=== PATIENT | male | born 1985 | race Caucasian/White ===

== ENCOUNTER 2021-03-30 16:38 | Inpatient (IN) | payer SELFPAY ==
[~2021-03-30] VITALS: Ht 165.1 cm; Wt 67.3 kg
[~2021-03-30 16:38] MED LIST: CLIN150 PO; HYDACE5 PO; Prilosec Otc20 MG PO; SUCR1 PO
[2021-03-30 17:12] LABS: BASOPHILS ABSOLUTE AUTO 0.05 K/mm3 (0.00-0.23); BASOPHILS PERCENT AUTO 0 % (0-2); EOSINOPHILS ABSOLUTE AUTO 0.01 K/mm3 (0.00-0.68); EOSINOPHILS PERCENT AUTO 0 % (0-6); Hemoglobin 15.4 g/dL (13.5-17.5); IMMATURE GRAN ABSOLUTE AUTO 0.04 K/mm3 (0.00-0.10); IMMATURE GRAN PERCENT AUTO 0 % (0-1); LYMPHOCYTES ABSOLUTE AUTO 2.06 K/mm3 (0.84-5.20); LYMPHOCYTES PERCENT AUTO 17 % (21-46); MONOCYTES ABSOLUTE AUTO 1.57 K/mm3 (0.16-1.47); MONOCYTES PERCENT AUTO 13 % (4-13); Mean Corpuscular HGB 31.4 pg (26.0-34.0); Mean Corpuscular HGB Conc 35.8 g/dL (31.5-36.5); Mean Corpuscular Volume 88 fL (80-100); Mean Platelet Volume 10.5 fL (9.1-12.4); NEUTROPHILS ABSOLUTE AUTO 8.65 K/mm3 (1.96-9.15); NEUTROPHILS PERCENT AUTO 70 % (41-73); Platelet Count 305 K/mm3 (150-400); RDW Coefficient Variation 11.8 % (11.7-14.2); White Blood Cell Count 12.38 K/mm3 (4.00-11.30)
[2021-03-30 17:21] LABS: PCO2 Arterial 41.3 mmHg (35-45); PO2 Arterial 70.1 mmHg (80-100); pH Blood Arterial 7.39 (7.35-7.45)
[2021-03-30 17:24] LABS: Source, Urine Clean Catch
[2021-03-30 17:34] LABS: Alanine Aminotransfer (ALT/SGP 34 U/L (12-78); Albumin, Blood 4.4 g/dL (3.4-5.0); Alk Phos 79 U/L (50-136); Anion Gap 15 mmol/L (6-16); Aspartate Aminotrans (AST/SGOT 42 U/L (12-37); Bilirubin, Total 1.4 mg/dL (0.1-1.0); Blood Urea Nitrogen 14 mg/dL (8-24); Bun/Creatinine Ratio 12.1 (12.0-20.0); CO2, Blood 22 mmol/L (21-32); CPK Creatine Kinase 493 U/L (39-308); Calcium, Blood 9.4 mg/dL (8.5-10.1); Chloride, Blood 105 mmol/L (98-108); Creatine Kinase MB 4.1 ng/mL (0.0-3.6); Creatine Kinase MB Index 0.8 (0.0-4.0); Creatinine, Blood 1.16 mg/dL (0.60-1.20); Ethanol (Alcohol), Blood, Med <3 mg/dL; Free Thyroxine 1.14 ng/dL (0.70-1.60); Globulin, Blood 4.3 g/dL (2.2-4.0); Glomerular Filtration Rate >60 (60-); Glucose, Blood 139 mg/dL (70-99); Potassium, Blood 2.9 mmol/L (3.5-5.5); Sodium, Blood 142 mmol/L (136-145); Total Protein, Blood 8.7 g/dL (6.4-8.2)
[2021-03-30 18:13] LABS: Appearance, Urine Hazy (Clear); Bilirubin, Urine Neg (Neg); Blood, Urine 2+ (Neg); Color, Urine Yellow (P-Yellow); Glucose Qualitative, Urine 1+ (Neg); Ketones, Urine 1+ (Neg); Leukocyte Esterase, Urine 1+ (Neg); Nitrite, Urine Neg (Neg); Protein, Urine 3+ (Neg); Urobilinogen, Urine 1+ (Normal)
[2021-03-30 18:28] LABS: U Amphetamine Screen DETECTED; U Cannabinoids Screen DETECTED; U Methamphetamine Screen DETECTED
[2021-03-30 18:29] LABS: U Barbituate Screen Not Detected; U Benzodiazapine Screen Not Detected; U Buprenorphine Screen Not Detected; U Cocaine Screen Not Detected; U Methadone Screen Not Detected; U Opiates Screen Not Detected; U Oxycodone Screen Not Detected; U Phencyclidine Screen Not Detected; U Propoxyphene Screen Not Detected
[2021-03-30 18:33] LABS: Calcium Oxalate Crystals Few /hpf; Spermatozoa Mod /hpf
[2021-03-30 18:34] LABS: Amorphous Light (0-Heavy); Bacteria Few /hpf; Squamous Epithelial Cells Few /hpf (Few)
--- NOTE | 2021-03-30 20:30 | NUR ---
ADMIT ADMIT FROM ER VIA GURNEY. INTUBATED- AC 16, TV 450, PEEP 5, FIO2 35%. RR 16-18. SEDATED WITH PROPOFOL AT 60MCG/KG/MIN AND VERSED AT 3MG/HR. PT MOVES ALL EXTREMITIES AND WITHDRAWS TO NOXIOUS STIMULI, BUT IS NOT FOLLOWING COMMANDS. BILATERAL SOFT WRIST RESTRAINTS IN PLACE TO PREVENT SELF-EXTUBATION. MONITOR SHOWS NSR, RATE 90s. BP STABLE. OG CLAMPED AT THIS TIME. WATERS PATENT AMD DRAINING CLOUDY YELLOW URINE WITH SEDIMENT. NS INFUSING AT 200CC/HR AND POTASSIUM REPLACEMENT INFUSING PER ORDER. SEE ADMIT ASSESSMENT FOR FULL ASSESSMENT.
[2021-03-31 03:38] LABS: BASOPHILS ABSOLUTE AUTO 0.04 K/mm3 (0.00-0.23); BASOPHILS PERCENT AUTO 0 % (0-2); EOSINOPHILS ABSOLUTE AUTO 0.18 K/mm3 (0.00-0.68); EOSINOPHILS PERCENT AUTO 2 % (0-6); Hematocrit 37.1 % (37.0-53.0); Hemoglobin 13.2 g/dL (13.5-17.5); IMMATURE GRAN ABSOLUTE AUTO 0.03 K/mm3 (0.00-0.10); IMMATURE GRAN PERCENT AUTO 0 % (0-1); LYMPHOCYTES ABSOLUTE AUTO 1.93 K/mm3 (0.84-5.20); LYMPHOCYTES PERCENT AUTO 20 % (21-46); MONOCYTES ABSOLUTE AUTO 1.35 K/mm3 (0.16-1.47); MONOCYTES PERCENT AUTO 14 % (4-13); Mean Corpuscular HGB 31.3 pg (26.0-34.0); Mean Corpuscular HGB Conc 35.6 g/dL (31.5-36.5); Mean Corpuscular Volume 88 fL (80-100); NEUTROPHILS ABSOLUTE AUTO 5.97 K/mm3 (1.96-9.15); NEUTROPHILS PERCENT AUTO 63 % (41-73); Platelet Count 231 K/mm3 (150-400); RDW Standard Deviation 38.8 fL (35.1-46.3); Red Blood Cell Count 4.22 M/mm3 (4.30-5.90)
[2021-03-31 03:56] LABS: Alanine Aminotransfer (ALT/SGP 25 U/L (12-78); Albumin, Blood 3.3 g/dL (3.4-5.0); Albumin/Globulin Ratio 1.1 (0.8-1.8); Alk Phos 60 U/L (50-136); Anion Gap 5 mmol/L (6-16); Aspartate Aminotrans (AST/SGOT 34 U/L (12-37); Bilirubin, Total 1.1 mg/dL (0.1-1.0); Blood Urea Nitrogen 13 mg/dL (8-24); CO2, Blood 24 mmol/L (21-32); Chloride, Blood 114 mmol/L (98-108); Creatinine, Blood 0.86 mg/dL (0.60-1.20); Globulin, Blood 3.1 g/dL (2.2-4.0); Glomerular Filtration Rate >60 (60-); Glucose, Blood 80 mg/dL (70-99); Potassium, Blood 3.1 mmol/L (3.5-5.5); Sodium, Blood 143 mmol/L (136-145)
[2021-03-31 03:57] LABS: Total Protein, Blood 6.4 g/dL (6.4-8.2)
--- NOTE | 2021-03-31 06:31 | NUR ---
SHIFT SUMMARY NO ACUTE CHANGES. REMAINS INTUBATED- AC 16, TV 450, PEEP 5, FIO2 NOW 25%. SEDATED WITH PROPOFOL AT 60MCG/KG/MIN AND VERSED GTT BETWEEM 3-5MG/HR. VERSED NOW AT 3MG/HR. ALSO MEDICATED WITH FENTANYL 50MCG IV X 1 AND ATIVAN 2MG IV X 1 FOR SEDAITON ADJUNCT. PT BECOMES AGITATED WITH ANY STIMULATION. MOVES ALL EXTREMITIES SPONTANEOUSLY, BUT STILL NOT FOLLOWING COMMANDS. BILATERAL SOFT WRIST RESTRAINTS IN PLACE TO PROTECT TUBES/LINES. HR 80s-90s. BP STABLE. AFEBRILE. OG TO LIS WITH SCANT BILE DRAINAGE. WATERS PATENT AND DRAINING CLOUDY YELLOW URINE WITH SEDIMENT NOTED. KCL IVPB INFUSING TO REPLACE POTASSIUM. NS INFUSING AT 125CC/HR PER ORDER. WILL REPORT TO ONCOMING RN WHEN AVAILABLE.
[2021-03-31 06:56] LABS: CPK Creatine Kinase 410 U/L (39-308); Creatine Kinase MB 3.2 ng/mL (0.0-3.6); Creatine Kinase MB Index 0.8 (0.0-4.0)
--- NOTE | 2021-03-31 08:26 | NUR ---
CARE OF PT ASSUMED AT 0700. PT SEDATED ON PROPOFOL AT 60MCG AND VERSED AT 3MG/HR FOR MECH VENT. PT WAKES UP EXTREMELY AGITATED, THRASHING, THROWING BODY AROUND BED, PULLING ON RESTRAINTS, STACKING ON VENT W VERY HIGH PEAK PRESSURES WITH ANY STIMULATION. PT CAN NOT BE REDIRECTED, DOES NOT FOLLOW INSTRUCTIONS, DOES NOT OPEN EYES. VERSED INCREASED TO 4MG/HR. PT HAS FAINT MITRAL REGURG MURMUR. BP/HR STABLE.
--- NOTE | 2021-03-31 09:21 | NUR ---
PT EXTREMELY AGITATED W TURN AND ORAL CARE. ATIVAN 2MG GIVEN. PT CONT TO BE AGITATED BUT WAS ABLE TO SQUEEZE MY HAND TO COMMAND AND NOD HIS HEAD YES TO "CAN YOU HEAR ME, CAN YOU NOD YOUR HEAD?". COPIOUS AMTS OF THICK PAUL/YELLOW SPUTUM SX'D FROM ETT.
--- NOTE | 2021-03-31 12:02 | NUR ---
DR NDIAYE IN TO SEE PT EARLIER THIS AM, FULL UPDATE GIVEN. PLAN IS TO KEEP PT INTUBATED FOR TODAY D/T AMS AND LARGE AMT OF SECRETIONS. TUBE FEEDS TO START. PROPOFOL WAS INCREASED TO 70MCG.
--- NOTE | 2021-03-31 12:52 | NUR ---
BOTH IV'S FOUND TO BE LEAKING. NEW POWERGLIDE ST PLACED TO SIA, NEW 18G PLACE TO [place]. PT NOW ADEQUATELY SEDATED. PROPOFOL DECREASED TO 50MCG, VERSED DECREASED TO 3MG. WILL CONT TO DECREASE SEDATION DOWN TOLERATED.
--- NOTE | 2021-03-31 14:28 | NUR ---
VITAL HIGH PROTEIN STARTED AT 25CC/HR W GOAL RATE 30CC. SPUTUM SENT. VERSED DCREASED TO 2MG/HR, PROPOFOL DECREASED TO 45MCG.
--- NOTE | 2021-03-31 16:01 | NUR ---
BP 190/82, PTRESTLES IN BD, DOES NOT OPEN EYES OR FOLLOW INSTRUCTION. PT STARTED THRASHING BODY AND HEAD WITH ORAL CARE. FENT 50MCG GIVEN, PROPOFOL INCREASED TO 50MCG
--- NOTE | 2021-03-31 18:02 | NUR ---
PT VERY AGITATED WITH 1730 TURN. SITTING STRAIGHT UP IN BED, GAGING, COUGHING, UNABLE TO REDIRECT. ATIVAN 2MG GIVEN. PROPOFOL INCREASED TO 60MCG. PT CONT TO HAVE COPIOUS DARK PAUL SECRETIONS FROM ETT.
--- NOTE | 2021-03-31 19:00 | NUR ---
ASSUMED CARE ASSUMED CARE OF PATIENT. REMAINS INTUBATED- AC 16, VC 450, PEEP 5, FIO2 30%. RR 18. SEDATED WITH PROPOFOL AT 60MCG/KG/MIN AND VERSED GTT AT 2MG/HR. INCREASED AGITATION NOTED WITH ANY STIMULATION. BILATERAL SOFT WRIST RESTRAINTS IN PLACE TO PREVENT SELF-EXTUBATION. MONITOR SHOWS ST, RATE 100-105. BP STABLE. TEMP 99.8F VIA WATERS TEMP PROBE. OG WITH VITAL HIGH PROTEIN AT 25CC/HR (GOAL IS 30CC/HR). WATERS PATENT AND DRAINING CLOUDY LISSA URINE. SEE SHIFT ASSESSMENT FOR FULL ASSESSMENT.
[2021-04-01 04:00] LABS: BASOPHILS ABSOLUTE AUTO 0.03 K/mm3 (0.00-0.23); BASOPHILS PERCENT AUTO 0 % (0-2); EOSINOPHILS ABSOLUTE AUTO 0.25 K/mm3 (0.00-0.68); EOSINOPHILS PERCENT AUTO 2 % (0-6); Hemoglobin 12.6 g/dL (13.5-17.5); IMMATURE GRAN ABSOLUTE AUTO 0.04 K/mm3 (0.00-0.10); IMMATURE GRAN PERCENT AUTO 0 % (0-1); LYMPHOCYTES ABSOLUTE AUTO 1.46 K/mm3 (0.84-5.20); LYMPHOCYTES PERCENT AUTO 14 % (21-46); MONOCYTES ABSOLUTE AUTO 1.48 K/mm3 (0.16-1.47); MONOCYTES PERCENT AUTO 14 % (4-13); Mean Corpuscular HGB 31.5 pg (26.0-34.0); Mean Corpuscular Volume 90 fL (80-100); Mean Platelet Volume 10.1 fL (9.1-12.4); NEUTROPHILS ABSOLUTE AUTO 7.53 K/mm3 (1.96-9.15); NEUTROPHILS PERCENT AUTO 70 % (41-73); Platelet Count 234 K/mm3 (150-400); RDW Coefficient Variation 12.3 % (11.7-14.2); RDW Standard Deviation 40.5 fL (35.1-46.3); White Blood Cell Count 10.79 K/mm3 (4.00-11.30)
[2021-04-01 04:19] LABS: Anion Gap 5 mmol/L (6-16); Blood Urea Nitrogen 10 mg/dL (8-24); Bun/Creatinine Ratio 12.2 (12.0-20.0); CO2, Blood 25 mmol/L (21-32); Calcium, Blood 7.8 mg/dL (8.5-10.1); Chloride, Blood 112 mmol/L (98-108); Creatinine, Blood 0.82 mg/dL (0.60-1.20); Glomerular Filtration Rate >60 (60-); Glucose, Blood 92 mg/dL (70-99); Phosphorus, Blood 3.6 mg/dL (2.5-4.9); Potassium, Blood 3.3 mmol/L (3.5-5.5); Sodium, Blood 142 mmol/L (136-145)
--- NOTE | 2021-04-01 06:26 | NUR ---
SHIFT SUMMARY NO ACUTE CHANGES DURING NOC. REMAINS INTUBATED- SAME VENT SETTINGS. SEDATED WITH PROPOFOL AT 60MCG/KG/MIN AND VERSED GTT BETWEEM 2-4MG/HR. VERSED NOW AT 3MG/HR. ALSO MEDICATED WITH ATIVAN 2MG IV X 2 DOSES SEDATION ADJUNCT. PT IS OCCASIONALLY AGITATED AND RESTLESS. INTERMITTENTLY FOLLOWS SIMPLE COMMANDS. MOVES ALL EXTREMITIES. ATTEMPTS TO SIT UP IN BED AND REACHES FOR ETT. VSS. TMAX 100.7F. OG WITH VITAL HIGH PROTEIN AT GOAL RATE OF 30CC/HR. RESIDUALS WNL. WATERS PATENT AND DRAINING TO GRAVITY. WILL REPORT TO ONCOMING RN WHEN AVAILABLE.
--- NOTE | 2021-04-01 08:00 | NUR ---
ASSUMED CARE BEDSIDE REPORT RECIEVED. PT IS INTUBATED AND SEDATED. VENT SETTINGS AC 16, 450, PEEP 5, FIO2 30%. PT WITH COPIOUS ORAL AND ETT SECRETIONS. PT AROUSES TO VERBAL AND NOXIOUS STIMULI. PT IS ABLE TO SQUEEZE HAND AND SHAKE HEAD NO UPON COMMAND. PT BECOMES VERY AGITATED WITH ANY STIMULATION. PT SEDATED WITH PROPOFOL AT 60 MCG/KG/MIN AND VERSED GTT AT 3 MG/MIN. OGT IN PLACE WITH TF INFUSING AT GOAL RATE. WATERS TEMP PROBE IN PLACE WITH LISSA URINE OUTPUT NOTED. VITAL SIGNS STABLE. PT HYPERTENSIVE. SBW RESTRAINTS IN PLACE. WILL CONTINUE TO MONITOR.
--- NOTE | 2021-04-01 10:03 | NUR ---
SBT PT SWITCHED TO PRESSURE SUPPORT /5, FIO2 30%. ORDERS RECIEVED TO WEAN OFF VERSED GTT AND START PRECEDEX.
--- NOTE | 2021-04-01 14:16 | NUR ---
EXTUBATION PT ON PRESSURE SUPPORT DOING WELL. SEDATIVES TITRATED DOWN. PT AWAKE, AND AGITATED. DR NDIAYE AND DANICA RT AT BEDSIDE. PT EXTUBATED AT 1400. PT PLACED ON 6L O2 NC. PT WITH COPIOUS ORAL SECRETIONS, PT ABLE TO CLEAR. PT ATTEMPTING TO TALK. WILL CONTINUE TO MONITOR.
--- NOTE | 2021-04-01 14:43 | NUR ---
AGITATION PT BECAME MORE AGITATED, YELLING AT STAFF, WANTING TO GET BELONGINGS AND LEAVE. DR NDIAYE NOTIFED. DR NDIAYE, THIS RN, AND EARLINE PIPER AT BEDSIDE. EVELIN PEREA. IV'S DISCONNECTED. PT STOOD AND AMBULATED OUT OF ROOM WITH 2 PERSON ASSISTANCE. PT PROFOUNDLY WEAK. PT BACK TO BED AT THIS TIME, TALKING ON PHONE. PT IS AGREEABLE TO STAY "FOR A WHILE" AT THIS TIME. WILL CONTINUE TO MONITOR.
--- NOTE | 2021-04-01 17:55 | NUR ---
PT LEFT AMA PT INSISTENT UPON LEAVING, DESPITE MULTIPLE CONVERSATIONS ABOUT PT NEED TO STAY FOR ATLEAST ONE MORE NIGHT FOLLOWING EXTUBATION. PT INFORMED OF RISKS OF LEAVING AGAINST MEDICAL ADVICE BY THIS RN AND DR NDIAYE. PT ACKNOWLEDGED AND SIGNED AMA PAPERWORK. ALL IV'S DC'D. PT DRESSED SELF. PT WALKED OUT OF THE ICU AT 1753. LEANNE, POULTRY SCALDER AWARE.
== END 2021-04-01 17:55 | disposition left against medical advice (07) | DRG 917 ==
LOC: ER 16:38 → ICUW 16:39
PROVIDERS: Emergency Medicine; Student in an Organized Health Care Education/Training Program; ADMIT Internal Medicine
PROC: 0BH17EZ Insertion of Endotracheal Airway into Trachea, Via Natural or Artificial Opening (ICD-10-PCS; principal; 2021-03-30)
PROC: 5A1935Z Respiratory Ventilation, Less than 24 Consecutive Hours (ICD-10-PCS; 2021-03-30)
DX: T43.621A Poisoning by amphetamines, accidental (unintentional), initial encounter (principal); G92 Toxic encephalopathy; M62.82 Rhabdomyolysis; R29.6 Repeated falls; F17.210 Nicotine dependence, cigarettes, uncomplicated; E87.6 Hypokalemia; D72.829 Elevated white blood cell count, unspecified; R45.1 Restlessness and agitation; F15.959 Other stimulant use, unspecified with stimulant-induced psychotic disorder, unspecified; Z78.1 Physical restraint status; Z53.29 Procedure and treatment not carried out because of patient's decision for other reasons
CPT/HCPCS: 31500; 36415; 36600; 51702; 70450; 71045; 80048; 80053; 81001; 82550; 82553; 82803; 83735; 84100; 84439; 84443; 85025; 87070; 87077; 87086; 87185; 87205; 94002; 94003; 96365-59; 96368; 96372; 96375; 96376-59; 99285-25; A9270; C1751; C9113; G0378; G0480; J1650; J2060; J2250; J2704; J3010; J3480; J7030; J7050

== ENCOUNTER 2021-06-15 17:57 | Emergency (ER) | payer SELFPAY ==
[~2021-06-15] VITALS: Ht 170.2 cm; Wt 68.0 kg
[~2021-06-15 17:57] MED LIST changes: +Cleocin HCl150 MG PO
== END 2021-06-15 20:32 | disposition home or self-care (01) ==
LOC: ER 17:57
DX: L02.211 Cutaneous abscess of abdominal wall (principal); F17.200 Nicotine dependence, unspecified, uncomplicated
CPT/HCPCS: 99283; A9270